=== PATIENT | female | born 1995 | race Two or more races ===

== ENCOUNTER → 2020-03-14 | Emergency (ER) | payer MEDICAID ==
[~2020-03-14] VITALS: Ht 157.5 cm; Wt 84.8 kg
[~2020-03-14] MED LIST: ACETAMINOPHEN 500 MG TAB PO ONE
[2020-03-14 20:33] VITALS: BP 98/64
== END | disposition home or self-care (01) ==
LOC: ER 19:57
DX: O26.893 Other specified pregnancy related conditions, third trimester (principal); S80.862A Insect bite (nonvenomous), left lower leg, initial encounter; Z3A.33 33 weeks gestation of pregnancy; W57.XXXA Bitten or stung by nonvenomous insect and other nonvenomous arthropods, initial encounter; Y93.89 Activity, other specified; Y92.89 Other specified places as the place of occurrence of the external cause; Y99.8 Other external cause status

== ENCOUNTER 2022-11-07 12:12 | Emergency (ER) | payer MEDICAID ==
[~2022-11-07] VITALS: Ht 157.5 cm; Wt 84.5 kg
[2022-11-07 13:05] LABS: Basophils # (auto) 0 10 ^3/uL (0-0.2); Basophils % (auto) 0.6 % (0.0-2.0); Eosinophils # (auto) 0.1 10 ^3/uL (0-0.8); Eosinophils % (auto) 1.2 % (0.0-7.0); Hematocrit 40.1 % (36.0-46.0); Hemoglobin 13.6 g/dL (12.2-16.2); Lymphocytes # (auto) 2.1 10 ^3/uL (0.4-5.4); Lymphocytes % (auto) 25.9 % (10.0-50.0); Mean Corpuscular Hemoglobin 31.4 pg (28.0-32.0); Mean Corpuscular Hgb Conc. 33.9 g/dL (32.0-36.0); Mean Corpuscular Volume 92.7 fL (80.0-100.0); Monocytes # (auto) 0.6 10 ^3/uL (0-1.3); Monocytes % (auto) 6.7 % (0.0-12.0); Neutrophils # (auto) 5.4 10 ^3/uL (1.6-8.6); Neutrophils % (auto) 65.6 % (37.0-80.0); Nucleated Red Blood Cells % 0.2 %; Red Blood Cells 4.33 10^6/uL (4.0-5.20); Red Cell Distribution Width 13.6 % (11.8-14.3); White Blood Cell 8.2 10^3/uL (4.4-10.8)
[2022-11-07 13:17] LABS: Urine Bacteria NONE SEEN /hpf (None Seen); Urine Blood Negative /uL (Negative); Urine WBC 6 /hpf (0 - 5)
[2022-11-07 13:20] LABS: Albumin 3.6 g/dL (3.4-5.0); Calcium 8.8 mg/dL (8.5-10.1); Potassium 4.1 mmol/L (3.5-5.1)
[2022-11-07 13:23] LABS: BUN/Creatinine Ratio 20.3 (10.0-20.0); Bilirubin, Total 0.3 mg/dL (0.2-1.0); Total Protein 6.9 g/dL (6.4-8.2)
[2022-11-07] MEDS ORDERED: ACET1CAP14 PO ×3 (13:43→14:12)
[2022-11-07] MEDS ORDERED: CEPH-510 PO ×3 (13:43→14:12)
[2022-11-07] MEDS ORDERED: PHEN95TA10 PO ×3 (13:43→14:12)
[2022-11-07 14:12] VITALS: BP 109/71
== END 2022-11-07 14:13 | disposition home or self-care (01) ==
LOC: ER 12:12
DX: N39.0 Urinary tract infection, site not specified (principal); R19.7 Diarrhea, unspecified
CPT/HCPCS: 36415; 80053; 81001; 83690; 85025